=== PATIENT | male | born 1975 | race Caucasian/White ===

== ENCOUNTER 2017-08-09 13:01 | Inpatient (IN) ==
[2017-08-09] MEDS ORDERED: Naloxone 0.4 MG/ML INJ IVP PRN (15:26)
--- NOTE | 2017-08-09 15:42 | Internal Med History&Physical ---
Date of Encounter: 08/09/17 Time of Encounter: 15:42 Internal Medicine - H&P: HPI Chief complaint: Left ear pain Admitted From: Emergency Dept Plans for Post Hospital Care: Home History of present illness: Mr. Zhang is a 42 year old male patient with a history of hypertension presented to the ED at [facility] with complaints of worsening pain in left ear along with swelling. He has been dealing with this problem for about 10 days now. He was seen in the [place] last week when his symptoms initially began and was placed on oral antibiotics-possibly cephalexin. He took this medication as prescribed but his symptoms did not improve. He returned to the urgent care clinic there and then he was placed on Augmentin. This also did not improve his symptoms. As such he returned to the ER yesterday. He was then hospitalized for malignant otitis externa and was given IV antibiotics. He is being transferred over here for further care and ENT consultation. He denies any fevers or chills. He denies any dizziness Or hearing loss. Past Med Surg Social Fam HX - Past Medical History Attestation: Yes The following information was validated with the patient. Source: patient Medical history: GERD, hypertension Additional medical history: recurrent ear infections, back pain - Past Surgical History Surgical History: sinus surgery - Social History Smoking Status: Never smoker Alcohol use: none Drug use: none - Family History Mother Hx Family Cancer: Yes (breast cancer) Father Hx Family Cardiac Disorders: Yes (HTN) Internal Medicine - H&P: Meds Omeprazole [PriLOSEC] 40 mg PO DAILY 08/09/17 [History] 3 Allergy/AdvReac Type Severity Reaction Status Date / Time No Known Allergies Allergy Verified 08/09/17 14:49 All Systems PM: A 10-system review of systems was performed and is negative for pertinent findings except as documented above in the HPI. - Constitutional Constitutional: no chills, no fever(s), no night sweats - EENT Eyes: no change in vision, no discharge, no pain, no photophobia Ears: ear pain, no ear discharge, no tinnitus Nose, mouth and throat: no dysphagia, no nasal discharge, no neck pain, no sore throat - Cardiovascular Cardiovascular ROS IM: no chest pain, no diaphoresis, no dyspnea, no lightheadedness, no palpitations, no syncope - Respiratory Respiratory: no cough, no dyspnea, no wheezing, no excessive phlegm production - Gastrointestinal Gastrointestinal: no abdominal pain, no diarrhea, no hematemesis, no hematochezia, no melena, no nausea, no vomiting - Musculoskeletal Musculoskeletal ROS IM: no numbness, no tingling - Integumentary Integumentary IM: no rash, no unusual bruising - Neurological Neurological ROS: no confusion, no convulsions, no focal weakness, no numbness, no tingling, no tremor(s) - Hematologic/Lymphatic Hematologic/Lymphatic: no easy bruising - Constitutional Vitals: Temp Pulse Resp BP Pulse Ox 98.4 F 57 18 147/89 96 08/09/17 15:18 08/09/17 15:18 08/09/17 15:18 08/09/17 15:18 08/09/17 15:18 General appearance: Present: cooperative, mild distress, A&O X 3, obese, answers questions appropriately - Eye Eye exam: Present: EOMI, PERRL, conjuntiva pink, sclera anicteric - ENT Additional comments: Left ext auditory canal swollen with tenderness and erythema over the left pinna. - Respiratory Respiratory exam: Present: CTAB. Absent: accessory muscle use, rales, rhonchi, wheezes - Cardiovascular Cardiovascular exam: Present: RRR, +S1, +S2. Absent: diastolic murmur, gallop, rubs, systolic murmur - GI/Abdominal GI/Abdominal exam: Present: normal bowel sounds, soft, no peritoneal signs. Absent: distended, tenderness - Extremities Exam Extremities exam: Present: warm, radial pulses palpable and symmetrical. Absent : calf tenderness, cyanotic, pedal edema - Neurological Exam Neurological exam: Present: CN II-XII intact, oriented X3, no focal deficits. Absent: facial droop, speech deficit Internal Med - H&P Results - Labs Labs: WBC 10.9, Hgb 15.4, Platelets 266 BUN 14, Cr 1.04, Gluc 88, - Impressions CT head shows thickening around left ext auditory canal - Assessment and plan (1) Malignant otitis externa, left ear Current Visit: Yes Status: Acute Assessment and plan: Admit inpatient. Failed outpatient treatment. IV ciprofloxacin. Ciprodex eardrops. Discussed with ENT. Consulted and they will evaluate tomorrow. Recommended 1 dose of IV Decadron. Also ordered CT of auditory canals. High risk for complications. Qualifiers: Chronicity: acute Qualified Code(s): H60.22 - Malignant otitis externa, left ear (2) Essential hypertension Current Visit: Yes Status: Chronic Assessment and plan: Monitor blood pressure. Resume home medications - Time Spent With Patient Total time spent is greater than 50% in coordination of care (as documented) at patient's floor/unit and/or counseling patient:
[2017-08-09] MEDS ORDERED: Dexamethasone 4 MG/ML VIAL IVP ONE (16:04)
[2017-08-09] MEDS ORDERED: Ringers Solution, Lactated 1,000 ML IVC SCH (16:15)
[2017-08-09] MEDS ORDERED: *HR* HYDROcodone/Acet 5/325 mg TABLET PO PRN (16:53)
[2017-08-09] MEDS ORDERED: Ibuprofen 400 MG TABLET PO PRN (16:53)
[2017-08-09] MEDS ORDERED: *HR* OxyCODONE Immed Rel 5 MG TABLET PO PRN (16:53)
[2017-08-09] MEDS ORDERED: Acetaminophen 325 MG TABLET PO PRN (16:53)
[2017-08-09] MEDS: *HR* Heparin 5,000 UNIT/ML VIAL SQ SCH (17:03)
[2017-08-09] MEDS: Ciprofloxacin/Dex *EAR* Susp 7.5 ML BOTTLE LEFT EAR SCH (19:15)
[2017-08-10 05:10] LABS: Basophils % 0.1 %; Hematocrit 47.5 % (37.5-50.1); Hemoglobin 16.3 g/dL (12.9-16.9); Immature Granulocytes % 0.7 % (0-4); Lymphocytes # 1.5 K/mcL (0.6-4.6); Lymphocytes % 13.8 %; Mean Corpuscular HGB Conc 34.3 g/dL (31.6-35.5); Mean Corpuscular Hemoglobin 30.5 pg (28.0-33.3); Mean Platelet Volume 9.8 fL (9.4-12.4); Monocytes # 0.3 K/mcL (0.0-1.3); Monocytes % 2.6 %; Neutrophils # 9.1 K/mcL (1.6-8.9); Platelet Count 313 K/mcL (140-400); Red Blood Count 5.34 M/mcL (4.19-5.50); Red Cell Distribution Width 12.4 % (11.5-14.5); Segmented Neutrophils % 82.8 %
[2017-08-10] MEDS: *HR* Heparin 5,000 UNIT/ML VIAL SQ SCH (05:17)
[2017-08-10 05:29] LABS: BUN/Creatinine Ratio 14 (6-26); Blood Urea Nitrogen 13 mg/dL (6-20); Calcium 9.7 mg/dL (8.6-10.3); Carbon Dioxide 25 mEq/L (23-29); Chloride 106 mEq/L (98-107); Glucose 150 mg/dL (70-105); Osmolality,Calculated 289 (280-300); Potassium 4.3 mEq/L (3.5-5.1); Sodium 138 mEq/L (136-145); eGFR For African Americans > 60 (> 60); eGFR For Non-African Americans > 60 (> 60)
[2017-08-10 07:47] VITALS: BP 155/94
[2017-08-10] MEDS: Ciprofloxacin/Dex *EAR* Susp 7.5 ML BOTTLE LEFT EAR SCH (09:11)
--- NOTE | 2017-08-10 11:33 | ENT - Consult Note ---
Date of Encounter: 08/10/17 Time of Encounter: 11:30 Assessment and Plan (1) Otitis externa Current Visit: Yes Status: Acute Left otitis externa -CT temporal bone reviewed in detail. There is no bony erosion in the middle ear structures nor external ear canal. -Seems to have improved with just a few doses of Ciprodex drops, failed prior outpatient therapy with Cortisporin drops and Augmentin -Recommend Ciprodex otic 5 drops bid left ear x 7 days - Recommend oral Cipro 500mg bid x 7 days - Recommend strict dry ear precautions to the left ear - Followup with me in office in 2 weeks for recheck and full debridement. - will do audiogram at that time if there is any concern for persistent effusion. - OK to DC from ENT standpoint. Qualifiers: Otitis externa type: swimmer's ear Chronicity: acute Laterality: left Qualified Code(s): H60.332 - Swimmer's ear, left ear History of Present Illness History of present illness: Pt is a healthy 42 yo male with a left ear infection transferred from the [place] for concern of [facility]. Pt has been on keflex then augmentin po as outpatient along with intermittent cortisporin drop use without improvement. He was switched to Ciprodex yesterday and has had great improvement in his pain and symptoms. Denies prior ear infection hx or prior ear surgeries. Denies hearing loss. He recalls a day working outside with lots of sweat in his ear that he was aggressively cleaning his prior to the onset of his symptoms. CT temporal bone done here at [facility] shows no bony erosion. Past Med Surg Social Fam HX - Past Medical History Medical history: GERD, hypertension Additional medical history: recurrent ear infections, back pain - Past Surgical History Surgical History: sinus surgery - Social History Smoking Status: Never smoker Alcohol use: none Drug use: none - Family History Mother Hx Family Cancer: Yes (breast cancer) Father Hx Family Cardiac Disorders: Yes (HTN) Medications and Allergies Omeprazole [PriLOSEC] 40 mg PO DAILY 08/09/17 [History] 3 Allergy/AdvReac Type Severity Reaction Status Date / Time No Known Allergies Allergy Verified 08/09/17 14:49 ENT - ROS All systems PM: reviewed and no additional remarkable complaints except as stated ENT Exam Initial Vital Signs Temp Pulse Resp BP Pulse Ox 98.4 F 57 18 147/89 96 08/09/17 15:18 08/09/17 15:18 08/09/17 15:18 08/09/17 15:18 08/09/17 15:18 - General physical appearance well developed, well nourished, no distress - Eyes PERRL, normal ocular movement - ENT normal nares, normal mucosa, Other (Right EAC with moderate cerumen, able to visualize TM which is intact without effusion present. Left EAC with mild canal swelling and wet cerumen and ear drop residue. The TM is visualized easily which is intact. There is some dullness and likely effusion present. There is no granulation tissue or conerning findings in the EAC for bony erosion. ) - Neck no masses, other (no lymphadenopathy) - Respiratory normal expansion, normal respiratory effort - Abdomen Abdomen: no distended - Integumentary no rash, no growths - Neurologic normal coordination, normal sensation, other (facial nerve fully intact, HB 1/6 bilaterally ) - Musculoskeletal normal gait, normal posture - Psychiatric oriented to time, oriented to person, oriented to place Exam Initial Vital Signs Temp Pulse Resp BP Pulse Ox 98.4 F 57 18 147/89 96 08/09/17 15:18 08/09/17 15:18 08/09/17 15:18 08/09/17 15:18 08/09/17 15:18 Results - Labs 08/10/17 03:46 08/10/17 03:46 Abnormal lab results Neutrophils # 9.1 K/mcL (1.6-8.9) H 08/10/17 03:46 Glucose 150 mg/dL (70-105) H 08/10/17 03:46 POC Glucose 132 mg/dL (70-99) H 08/10/17 05:20 Diabetes panel 08/10/17 Range/Units 03:46 Sodium 138 (136-145) mEq/L Potassium 4.3 (3.5-5.1) mEq/L Chloride 106 (98-107) mEq/L Carbon Dioxide 25 (23-29) mEq/L BUN 13 (6-20) mg/dL Creatinine 0.90 (0.70-1.30) mg/dL Glucose 150 H (70-105) mg/dL Calcium 9.7 (8.6-10.3) mg/dL Calcium panel 08/10/17 Range/Units 03:46 Calcium 9.7 (8.6-10.3) mg/dL Pituitary panel 08/10/17 Range/Units 03:46 Sodium 138 (136-145) mEq/L Potassium 4.3 (3.5-5.1) mEq/L Chloride 106 (98-107) mEq/L Carbon Dioxide 25 (23-29) mEq/L BUN 13 (6-20) mg/dL Creatinine 0.90 (0.70-1.30) mg/dL Glucose 150 H (70-105) mg/dL Calcium 9.7 (8.6-10.3) mg/dL Adrenal panel 08/10/17 Range/Units 03:46 Sodium 138 (136-145) mEq/L Potassium 4.3 (3.5-5.1) mEq/L Chloride 106 (98-107) mEq/L Carbon Dioxide 25 (23-29) mEq/L BUN 13 (6-20) mg/dL Creatinine 0.90 (0.70-1.30) mg/dL Glucose 150 H (70-105) mg/dL Calcium 9.7 (8.6-10.3) mg/dL All other labs normal. Consult Discharge Plan - Plan Referrals: [facility] [Outside]
--- NOTE | 2017-08-10 11:48 | Discharge Summary ---
- NOTES TO OUTPATIENT PROVIDER Notes to Outpatient Provider: Admitted with concern for malignant otitis externa. Seen by ENT. Discharged on PO Cipro and Ciprodex drops with outpatient followup. Date of Encounter: 08/10/17 Time of Encounter: 11:43 - Discharge Diagnosis (1) Otitis externa Priority: Primary Status: Acute Qualifiers: Otitis externa type: swimmer's ear Chronicity: acute Laterality: left Qualified Code(s): H60.332 - Swimmer's ear, left ear (2) Malignant otitis externa, left ear Priority: Primary Status: Ruled-out Qualifiers: Chronicity: acute Qualified Code(s): H60.22 - Malignant otitis externa, left ear (3) Essential hypertension Priority: Secondary Status: Chronic Hospital course: Mr. Zhang is a 42 year old male with hx of HTN sent from [place] due to concern for malignant otitis externa. He had been treated with multiple different abx over the last week. Mr Zhang was admitted to med surg. He was started on IV Cipro and Ciprodex. ENT was called on admit. He had some improvement in his symptoms overnight. This AM he was seen by ENT and approved for discharge. At this time he is afebrile and comfortable. He will be discharged on Cipro 500mgBID for 7 days and Ciprodex 5 drops BID for 7 days. He is to see Dr. Spivey in 2 weeks. Discharge discussed with: patient, family - Time Spent with Patient Total time spent providing and/or coordinating discharge services: 29min - Discharge Medications Prescriptions: Ciprofloxacin [Cipro] 500 mg PO BID #15 tablet Ciprofloxacin/Dex *EAR* Susp [Ciprodex *EAR* Susp] 5 drop LEFT EAR BID #1 bottle Home Medications: Omeprazole [PriLOSEC] 40 mg PO DAILY 08/09/17 [History] Ciprofloxacin [Cipro] 500 mg PO BID #15 tablet 08/10/17 [Rx] Ciprofloxacin/Dex *EAR* Susp [Ciprodex *EAR* Susp] 5 drop LEFT EAR BID #1 bottle 08/10/17 [Rx] Allergies/Adverse Reactions: 3 Allergy/AdvReac Type Severity Reaction Status Date / Time No Known Allergies Allergy Verified 08/09/17 14:49 Date of admission: 08/09/17 16:50 Primary care physician: PCP [place] Consults: 08/09/17 15:25 Consult to ENT [CONS] Routine Consulting Provider: ENT Joie Reason for Consult: malignant otitis externa Time Notified: 15:25 Call Completed: Yes Discharging clinician: Anatoliy Reina Anticipated date of discharge: 08/10/17 - Constitutional Vitals: Temp Pulse Resp BP Pulse Ox 98.0 F 61 16 155/94 96 08/10/17 07:46 08/10/17 07:46 08/10/17 07:46 08/10/17 07:46 08/10/17 07:46 General appearance: Present: cooperative, A&O X 3, answers questions appropriately - Head Head exam: Present: normocephalic - Eye Eye exam: Present: EOMI, conjuntiva pink - ENT ENT exam: Present: mucous membranes dry - Respiratory Respiratory exam: Absent: rhonchi, wheezes - Cardiovascular Cardiovascular exam: Absent: tachycardia - Extremities Exam Extremities exam: Present: warm. Absent: tenderness - Neurological Exam Neurological exam: Present: alert, oriented X3, no focal deficits - Skin Skin exam: Present: dry, warm - Patient Status Disposition: Home, Self-Care Condition: Good Functional capacity at discharge: independent ambulation Overall status at discharge: patient is progressing back to baseline - Discharge Instructions Instructions: Chronic Hypertension (DC) Follow Up With: [facility] [Outside] Schuyler Arriaga DO [Partnered Physician] - (Follow up in 2 weeks) - Diet and Activity Activity: increase activity as tolerated Diet: advance to your usual diet
== END 2017-08-10 12:30 | disposition home or self-care (01) | DRG 156 ==
LOC: 3ANU 14:27 → INTOOBSV 14:27 → SUATTDRO 16:50
PROVIDERS: ADMIT Internal Medicine; ATTEND Internal Medicine